=== PATIENT | male | born 1975 | race Hispanic/Latino ===

== ENCOUNTER 2024-04-15 10:48 | Emergency (ER) | payer OTHER ==
[~2024-04-15] VITALS: Ht 167.6 cm; Wt 63.5 kg
[2024-04-15 10:48] VITALS: TEMP 97.6
[2024-04-15 11:26] LABS: BASOPHILS # (AUTO) 0.1 (0.0-0.1); BASOPHILS % 0.9 % (0.0-1.0); EOSINOPHILS # (AUTO) 0.2 (0.0-0.4); EOSINOPHILS % 2.7 % (0.0-6.0); HEMATOCRIT 46.9 % (38.2-49.6); HEMOGLOBIN 16.1 g/dL (14.0-18.0); LYMPHOCYTES # (AUTO) 2.4 (1.0-3.2); LYMPHOCYTES % 32.2 % (18.0-39.1); MEAN CORPUSCULAR HEMOGLOBIN 31.7 pg (28-32); MEAN CORPUSCULAR HGB CONC 34.3 g/dL (31-35); MEAN CORPUSCULAR VOLUME 92.3 fL (81-99); MONOCYTES # (AUTO) 0.6 (0.2-0.8); MONOCYTES % 8.3 % (4.4-11.3); NEUTROPHILS # (AUTO) 4.1 (2.1-6.9); NEUTROPHILS % 55.8 % (38.7-80.0); PLATELET COUNT 279 x10e3/uL (140-360); RED BLOOD COUNT 5.08 x10e6/uL (4.3-5.7); RED CELL DISTRIBUTION WIDTH 12.7 % (11.7-14.4); WHITE BLOOD COUNT 7.38 x10e3/uL (4.8-10.8)
[2024-04-15 11:50] LABS: INR 0.89; PROTHROMBIN TIME 12.7 seconds (11.9-14.5)
[2024-04-15 11:51] LABS: PARTIAL THROMBOPLASTIN TIME 29.9 seconds (23.8-35.5)
[2024-04-15 12:00] LABS: ALBUMIN 3.9 g/dL (3.5-5.0); ANION GAP 14.2 mmol/L (8-16); BILIRUBIN,TOTAL 0.8 mg/dL (0.2-1.2); CALCIUM 8.5 mg/dL (8.4-10.2); CREATININE, SERUM 0.81 mg/dL (0.72-1.25); POTASSIUM 4.2 mmol/L (3.5-5.1)
[2024-04-15 12:01] LABS: ALBUMIN/GLOBULIN RATIO 1.3 (0.8-2.0)
[2024-04-15 12:07] LABS: TROPONIN I 0.003 ng/mL (0-0.300)
[2024-04-15 12:32] VITALS: PULSE 62; RESP 15; O2SAT 97
== END 2024-04-15 13:35 | disposition home or self-care (01) ==
LOC: ER 10:56
DX: T75.4XXA Electrocution, initial encounter (principal); M79.10 Myalgia, unspecified site; R53.1 Weakness; E86.0 Dehydration; W86.1XXA Exposure to industrial wiring, appliances and electrical machinery, initial encounter; Y92.89 Other specified places as the place of occurrence of the external cause; Y93.89 Activity, other specified
CPT/HCPCS: 36415; 71045; 80053; 82550; 84484; 85025; 85610; 85730; 93005; 99284; U0002